=== PATIENT | female | born 1950 | race Caucasian/White ===

== ENCOUNTER 2017-07-25 10:37 | Inpatient (IN) | payer MEDICARE, SELFPAY ==
[~2017-07-25] VITALS: Ht 172.7 cm; Wt 57.9 kg
[2017-07-25] MEDS ORDERED: SODIUM CHLORIDE FLUSH 10ML SYR IVF ONE (11:30)
[2017-07-25] MEDS ORDERED: SODIUM CHLORIDE 0.9% 1,000ML IVBOLUS ONE (11:30)
[2017-07-25 11:33] LABS: BASOPHILS # (AUTO) 0.02 x10^3/uL (0-0.1); BASOPHILS % (AUTO) 0 % (0-1); EOSINOPHILS # (AUTO) 0.01 x10^3/uL (0-0.4); EOSINOPHILS % (AUTO) 0 % (1-7); LYMPHOCYTES # (AUTO) 1.13 x10^3/uL (1-3.4); LYMPHOCYTES % (AUTO) 13 % (22-44); MD NO; MEAN CORPUSCULAR HEMOGLOBIN 33.8 pg (27.0-34.8); MEAN CORPUSCULAR HGB CONC 34.4 g/dL (32.4-35.8); MEAN CORPUSCULAR VOLUME 98.1 fL (80-100); MEAN PLATELET VOLUME 6.9 fL (7.4-10.4); MONOCYTES # (AUTO) 0.29 x10^3/uL (0.2-0.8); MONOCYTES % (AUTO) 3 % (2-9); NEUTROPHILS % (AUTO) 83 % (42-75); PLATELET COUNT 405 x10^3/uL (130-400); RED BLOOD COUNT 3.11 x10^6/uL (3.82-5.3); RED CELL DISTRIBUTION WIDTH 14.3 % (9.6-15.2)
[2017-07-25 11:49] LABS: TROPONIN I < 0.015 ng/mL (0.000-0.045)
[2017-07-25] MEDS ORDERED: PLEASE ENTER HEIGHT AND WEIGHT MC SCH (12:00)
[2017-07-25 12:01] LABS: MICROSCOPIC AUTO
[2017-07-25 12:15] LABS: CULTURE INDICATED? YES
[2017-07-25 12:26] LABS: ANION GAP 11 mmol/L (5-15); CALCIUM 8.6 mg/dL (8.5-10.1); CHLORIDE 97 mmol/L (98-107); CREATININE 1.35 mg/dL (0.55-1.02)
[2017-07-25] MEDS ORDERED: MORPHINE SULFATE 4 MG/ML, 1ML ONE (12:43)
[2017-07-25] MEDS ORDERED: ONDANSETRON 2MG/ML, 2ML ONE (12:43)
[2017-07-25] MEDS ORDERED: ONDANSETRON 2MG/ML, 2ML IVPush ONE (13:00)
[2017-07-25] MEDS ORDERED: CEFTRIAXONE PMX 1GM/50ML 50 ML IV ONE (13:00)
[2017-07-25] MEDS ORDERED: MORPHINE SULFATE 4 MG/ML, 1ML IVPush ONE (13:00)
[2017-07-25] MEDS ORDERED: ETOMIDATE 20 MG/10 ML IVPush ONE (14:00)
[2017-07-25] MEDS ORDERED: FENTANYL PF 100 MCG/2ML ONE (14:03)
[2017-07-25] MEDS ORDERED: ETOMIDATE 20 MG/10 ML ONE (14:03)
[2017-07-25] MEDS ORDERED: FENTANYL PF 100 MCG/2ML IV ONE (14:30)
[2017-07-25] MEDS ORDERED: DOCUSATE 100 MG CAPSULE PO PRN (15:30)
[2017-07-25] MEDS ORDERED: BISACODYL 10 MG SUPP PR PRN (15:30)
[2017-07-25] MEDS ORDERED: ONDANSETRON 2MG/ML, 2ML IVPush PRN (15:30)
[2017-07-25] MEDS ORDERED: POLYETHYLENE GLYCOL 17 GM PACKET PO PRN (15:30)
[2017-07-25] MEDS ORDERED: ACETAMINOPHEN 325 MG TABLET PO PRN (15:30)
[2017-07-25] MEDS ORDERED: DEXTROSE 50%, 50ML SYRINGE IVPush PRN (16:00)
[2017-07-25] MEDS ORDERED: DEXTROSE 4 GM TAB.CHEW PO PRN (16:00)
[2017-07-25] MEDS: INSULIN ASPART 100 UNITS/ML, PEN SQ-INSULIN SCH ×2 (16:00→22:00)
[2017-07-25] MEDS ORDERED: GLUCAGON 1 MG IM PRN (16:00)
[2017-07-25 16:14] LABS: THYROID STIMULATING HORMONE 49.6 mIU/L (0.358-3.740)
[2017-07-25] MEDS ORDERED: GADOBUTROL 7.5 MMOL/7.5 ML PFS ONE (16:20)
[2017-07-25 18:38] VITALS: BP 168/91
[2017-07-25 19:14] VITALS: BP 146/78
[2017-07-25] MEDS: NS + 20MEQ KCL 1,000 ML IV SCH (19:57)
[2017-07-25 20:15] LABS: TROPONIN I < 0.015 ng/mL (0.000-0.045)
[2017-07-25] MEDS: SODIUM CHLORIDE FLUSH 10ML SYR IVF SCH (20:32)
[2017-07-25] MEDS: CEFTRIAXONE PMX 1GM/50ML 50 ML IV SCH (20:32)
[2017-07-26 01:52] VITALS: BP 155/76
[2017-07-26 02:50] LABS: TROPONIN I < 0.015 ng/mL (0.000-0.045)
[2017-07-26] MEDS: INSULIN ASPART 100 UNITS/ML, PEN SQ-INSULIN SCH ×4 (04:00→21:49)
[2017-07-26] MEDS: NS + 20MEQ KCL 1,000 ML IV SCH (05:40)
[2017-07-26] MEDS: LEVOTHYROXINE 25 MCG TABLET PO SCH (05:40)
[2017-07-26 06:06] LABS: BASOPHILS # (AUTO) 0.03 x10^3/uL (0-0.1); BASOPHILS % (AUTO) 1 % (0-1); EOSINOPHILS # (AUTO) 0.08 x10^3/uL (0-0.4); EOSINOPHILS % (AUTO) 1 % (1-7); LYMPHOCYTES # (AUTO) 1.13 x10^3/uL (1-3.4); LYMPHOCYTES % (AUTO) 20 % (22-44); MD NO; MEAN CORPUSCULAR HEMOGLOBIN 34.3 pg (27.0-34.8); MEAN CORPUSCULAR HGB CONC 34.4 g/dL (32.4-35.8); MEAN CORPUSCULAR VOLUME 99.7 fL (80-100); MEAN PLATELET VOLUME 7.4 fL (7.4-10.4); MONOCYTES # (AUTO) 0.31 x10^3/uL (0.2-0.8); MONOCYTES % (AUTO) 6 % (2-9); NEUTROPHILS # (AUTO) 4.04 x10^3/uL (1.8-6.8); NEUTROPHILS % (AUTO) 72 % (42-75); PLATELET COUNT 307 x10^3/uL (130-400); RED BLOOD COUNT 2.53 x10^6/uL (3.82-5.3); RED CELL DISTRIBUTION WIDTH 14.5 % (9.6-15.2)
[2017-07-26 06:14] LABS: CHLORIDE 104 mmol/L (98-107)
[2017-07-26 06:23] LABS: ANION GAP 8 mmol/L (5-15); CALCIUM 7.7 mg/dL (8.5-10.1); CHOL/HDL RATIO 3.1; CHOLESTEROL, TOTAL 181 mg/dL (140-239); CREATINE KINASE, TOTAL 703 U/L (26-192); HDL CHOL % 32 % (28-40); HDL CHOLESTEROL (DIRECT) 58 mg/dL (40-60); LDL CHOLESTEROL,CALCULATED 99 mg/dL (54-169); LDL/HDL RATIO 1.7 (0.5-3.0); TRIGLYCERIDES 121 mg/dL (50-200); VLDL CHOLESTEROL 24 mg/dL (0-25)
[2017-07-26 08:22] VITALS: BP 136/67
[2017-07-26] MEDS ORDERED: ASPIRIN 81 MG TABLET CHEW PO SCH (09:00)
[2017-07-26] MEDS: SODIUM CHLORIDE FLUSH 10ML SYR IVF SCH ×2 (09:00→21:49)
[2017-07-26 15:12] VITALS: BP 120/67
[2017-07-26] MEDS: CEFTRIAXONE PMX 1GM/50ML 50 ML IV SCH (16:31)
[2017-07-26] MEDS: NICOTINE 21 MG/24 HR PATCH.TD24 TD SCH (16:32)
[2017-07-26 19:41] VITALS: BP 137/74
[2017-07-27 01:00] VITALS: BP 131/71
[2017-07-27] MEDS: LEVOTHYROXINE 25 MCG TABLET PO SCH (05:28)
[2017-07-27 07:25] VITALS: BP 137/72
[2017-07-27] MEDS ORDERED: REGADENOSON 0.4 MG/5 ML SYRINGE ONE (08:03)
[2017-07-27] MEDS: SODIUM CHLORIDE FLUSH 10ML SYR IVF SCH ×2 (08:18→21:54)
[2017-07-27] MEDS: INSULIN ASPART 100 UNITS/ML, PEN SQ-INSULIN SCH ×4 (08:18→21:54)
[2017-07-27] MEDS: morphine SULFATE 10 MG/ML, 1ML IVPush PRN (08:28)
[2017-07-27 08:49] LABS: ANION GAP 4 mmol/L (5-15); CALCIUM 7.9 mg/dL (8.5-10.1); CHLORIDE 104 mmol/L (98-107); CREATININE 0.99 mg/dL (0.55-1.02)
[2017-07-27] MEDS ORDERED: POTASSIUM CHLORIDE 20 MEQ TAB.ER.PRT PO ONE (11:30)
[2017-07-27 13:25] VITALS: BP 160/73
[2017-07-27] MEDS: CEFTRIAXONE PMX 1GM/50ML 50 ML IV SCH (16:04)
[2017-07-27] MEDS: HYDROcodone/APAP 5/325 TABLET PO PRN (16:15)
[2017-07-27 18:48] VITALS: BP 125/70
[2017-07-27] MEDS: NICOTINE 21 MG/24 HR PATCH.TD24 TD SCH (21:54)
[2017-07-27] MEDS: ATORVASTATIN 40 MG TABLET PO SCH (21:55)
[2017-07-28 02:00] VITALS: BP 145/64
[2017-07-28 05:34] LABS: CHLORIDE 106 mmol/L (98-107)
[2017-07-28 05:37] LABS: BASOPHILS # (AUTO) 0.04 x10^3/uL (0-0.1); BASOPHILS % (AUTO) 1 % (0-1); EOSINOPHILS # (AUTO) 0.09 x10^3/uL (0-0.4); EOSINOPHILS % (AUTO) 2 % (1-7); LYMPHOCYTES # (AUTO) 1.64 x10^3/uL (1-3.4); LYMPHOCYTES % (AUTO) 27 % (22-44); MD NO; MEAN CORPUSCULAR HEMOGLOBIN 34.6 pg (27.0-34.8); MEAN CORPUSCULAR HGB CONC 34.7 g/dL (32.4-35.8); MEAN CORPUSCULAR VOLUME 99.7 fL (80-100); MEAN PLATELET VOLUME 7.3 fL (7.4-10.4); MONOCYTES # (AUTO) 0.32 x10^3/uL (0.2-0.8); MONOCYTES % (AUTO) 5 % (2-9); NEUTROPHILS # (AUTO) 4.02 x10^3/uL (1.8-6.8); NEUTROPHILS % (AUTO) 66 % (42-75); PLATELET COUNT 373 x10^3/uL (130-400); RED BLOOD COUNT 2.44 x10^6/uL (3.82-5.3); RED CELL DISTRIBUTION WIDTH 14.5 % (9.6-15.2)
[2017-07-28 05:49] LABS: ANION GAP 7 mmol/L (5-15); CREATINE KINASE, TOTAL 257 U/L (26-192); CREATININE 0.87 mg/dL (0.55-1.02)
[2017-07-28] MEDS: LEVOTHYROXINE 25 MCG TABLET PO SCH (05:57)
[2017-07-28] MEDS: ASPIRIN 81 MG TABLET EC PO SCH (05:57)
[2017-07-28] MEDS: INSULIN ASPART 100 UNITS/ML, PEN SQ-INSULIN SCH ×4 (07:00→21:00)
[2017-07-28 07:05] VITALS: BP 186/85
[2017-07-28 07:37] VITALS: BP 157/79
[2017-07-28] MEDS: morphine SULFATE 10 MG/ML, 1ML IVPush PRN (07:43)
[2017-07-28] MEDS: SODIUM CHLORIDE FLUSH 10ML SYR IVF SCH ×2 (07:59→20:35)
[2017-07-28] MEDS ORDERED: PHENYLEPHRINE 10 MG/ML ONE (10:10)
[2017-07-28] MEDS ORDERED: CEFAZOLIN 1,000 MG ONE (10:10)
[2017-07-28] MEDS ORDERED: BUPIVACAINE/PF 0.5% ONE (12:10)
[2017-07-28] MEDS ORDERED: EPINEPHRINE 1 MG/ML, 1ML ONE (12:10)
[2017-07-28] MEDS ORDERED: cloniDINE/PF 100 MCG/ML, 10 ML ONE (12:11)
[2017-07-28] MEDS ORDERED: MIDAZOLAM 1 MG/ML, 2ML ONE ×2 (12:14)
[2017-07-28] MEDS ORDERED: FENTANYL PF 100 MCG/2ML ONE ×2 (12:14→12:15)
[2017-07-28] MEDS ORDERED: HYDROmorphone 1 MG/ML, 1ML IV PRN (14:00)
[2017-07-28] MEDS ORDERED: ACETAMINOPHEN 325 MG TABLET PO PRN (14:00)
[2017-07-28] MEDS ORDERED: PROMETHAZINE 25 MG/ML, 1ML IV PRN (14:00)
[2017-07-28] MEDS ORDERED: ALBUTEROL SULFATE 2.5 MG/3 ML NPPB PRN (14:00)
[2017-07-28] MEDS ORDERED: MEPERIDINE/PF 25MG/0.5ML IVPush PRN (14:00)
[2017-07-28] MEDS ORDERED: OXYcodone 5 MG/5 ML ORAL.SOL UDC PO PRN (14:00)
[2017-07-28] MEDS ORDERED: FENTANYL PF 100 MCG/2ML IV PRN (14:00)
[2017-07-28] MEDS ORDERED: ONDANSETRON 2MG/ML, 2ML IVPush PRN (14:00)
[2017-07-28] MEDS ORDERED: LIDOCAINE 2% 100MG/5ML SYRINGE ONE (15:44)
[2017-07-28] MEDS ORDERED: PROPOFOL 10 MG/ML, 20ML ONE (15:44)
[2017-07-28] MEDS ORDERED: SUCCINYLCHOLINE 20 MG/ML, 10ML ONE (15:44)
[2017-07-28] MEDS ORDERED: DEXAMETHASONE 4 MG/ML, 1ML ONE (15:44)
[2017-07-28] MEDS ORDERED: ONDANSETRON 2MG/ML, 2ML ONE (15:44)
[2017-07-28] MEDS ORDERED: CEFAZOLIN 2,000 MG in DEXTROSE 5% 50 ML IVPB SCH ×2 (16:00)
[2017-07-28] MEDS ORDERED: CEFAZOLIN PMX 2GM/50ML 50 ML IVPB SCH (16:00)
[2017-07-28] MEDS: INSULIN REGULAR 100 UNITS/ML, 3ML VIAL SQ-INSULIN SCH ×2 (16:00→21:00)
[2017-07-28] MEDS ORDERED: CEFTRIAXONE 1,000 MG in DEXTROSE 5% 50 ML IV SCH (18:00)
[2017-07-28] MEDS: CEFTRIAXONE PMX 1GM/50ML 50 ML IV SCH (18:25)
[2017-07-28] MEDS: NICOTINE 21 MG/24 HR PATCH.TD24 TD SCH (20:34)
[2017-07-28] MEDS: ATORVASTATIN 40 MG TABLET PO SCH (20:34)
[2017-07-29 00:11] VITALS: BP 131/75
[2017-07-29] MEDS: HYDROcodone/APAP 5/325 TABLET PO PRN ×2 (05:54→14:17)
[2017-07-29] MEDS: LEVOTHYROXINE 25 MCG TABLET PO SCH (05:54)
[2017-07-29] MEDS: ASPIRIN 81 MG TABLET EC PO SCH (05:54)
[2017-07-29] MEDS: INSULIN REGULAR 100 UNITS/ML, 3ML VIAL SQ-INSULIN SCH ×3 (07:00→16:00)
[2017-07-29 07:48] VITALS: BP 149/73
[2017-07-29] MEDS: INSULIN ASPART 100 UNITS/ML, PEN SQ-INSULIN SCH ×3 (07:50→17:21)
[2017-07-29] MEDS: SODIUM CHLORIDE FLUSH 10ML SYR IVF SCH (07:51)
[2017-07-29 10:34] LABS: BASOPHILS # (AUTO) 0.04 x10^3/uL (0-0.1); BASOPHILS % (AUTO) 0 % (0-1); EOSINOPHILS # (AUTO) 0.04 x10^3/uL (0-0.4); EOSINOPHILS % (AUTO) 0 % (1-7); HEMOGRAM NOTE RECHECKED; LYMPHOCYTES # (AUTO) 1.08 x10^3/uL (1-3.4); LYMPHOCYTES % (AUTO) 9 % (22-44); MD NO; MEAN CORPUSCULAR HGB CONC 33.9 g/dL (32.4-35.8); MEAN CORPUSCULAR VOLUME 100.4 fL (80-100); MEAN PLATELET VOLUME 6.8 fL (7.4-10.4); MONOCYTES # (AUTO) 0.41 x10^3/uL (0.2-0.8); MONOCYTES % (AUTO) 4 % (2-9); NEUTROPHILS % (AUTO) 86 % (42-75); PLATELET COUNT 440 x10^3/uL (130-400); RED CELL DISTRIBUTION WIDTH 14.9 % (9.6-15.2)
[2017-07-29 10:38] LABS: ANION GAP 5 mmol/L (5-15); CALCIUM 7.9 mg/dL (8.5-10.1); CHLORIDE 103 mmol/L (98-107); CREATININE 0.96 mg/dL (0.55-1.02)
[2017-07-29] MEDS ORDERED: CEFD300C37 PO (11:02)
[2017-07-29] MEDS ORDERED: ATOR40TA78 PO (11:02)
[2017-07-29] MEDS ORDERED: LEVO25TA2 PO (11:02)
[2017-07-29] MEDS ORDERED: ASPI-621 PO (11:02)
[2017-07-29] MEDS ORDERED: HYDR-3240 PO (11:02)
[2017-07-29 13:10] VITALS: BP 124/73
[2017-07-29] MEDS ORDERED: FLU VACC QS2017-18 (36MOS+) UP/PF 0.5 ML IM-VACC ONE (14:30)
== END 2017-07-29 17:55 | DRG 492 ==
LOC: ED 14:03 → EDIP 15:22 → 4WST 18:25
PROVIDERS: ADMIT Internal Medicine; ATTEND Internal Medicine
PROC: 0RSJXZZ Reposition Right Shoulder Joint, External Approach (ICD-10-PCS; 2017-07-25)
PROC: 0PSC04Z Reposition Right Humeral Head with Internal Fixation Device, Open Approach (ICD-10-PCS; principal; 2017-07-28 12:30)
DX: M80.021A Age-related osteoporosis with current pathological fracture, right humerus, initial encounter for fracture (principal); I63.9 Cerebral infarction, unspecified; N17.0 Acute kidney failure with tubular necrosis; M62.82 Rhabdomyolysis; N30.00 Acute cystitis without hematuria; S22.31XA Fracture of one rib, right side, initial encounter for closed fracture; S43.014A Anterior dislocation of right humerus, initial encounter; E11.65 Type 2 diabetes mellitus with hyperglycemia; D64.9 Anemia, unspecified; M75.120 Complete rotator cuff tear or rupture of unspecified shoulder, not specified as traumatic; S42.134A Nondisplaced fracture of coracoid process, right shoulder, initial encounter for closed fracture; R55 Syncope and collapse; I11.9 Hypertensive heart disease without heart failure; R29.6 Repeated falls; E86.9 Volume depletion, unspecified; E87.6 Hypokalemia; E03.9 Hypothyroidism, unspecified; F17.210 Nicotine dependence, cigarettes, uncomplicated; M81.0 Age-related osteoporosis without current pathological fracture; Z66 Do not resuscitate; W01.0XXA Fall on same level from slipping, tripping and stumbling without subsequent striking against object, initial encounter; Z79.4 Long term (current) use of insulin; Z79.82 Long term (current) use of aspirin; Z82.49 Family history of ischemic heart disease and other diseases of the circulatory system; Z83.3 Family history of diabetes mellitus; Z86.73 Personal history of transient ischemic attack (TIA), and cerebral infarction without residual deficits; Z90.710 Acquired absence of both cervix and uterus; Z91.19 Patient's noncompliance with other medical treatment and regimen; Z90.89 Acquired absence of other organs; Z90.49 Acquired absence of other specified parts of digestive tract; Y93.89 Activity, other specified; Y92.098 Other place in other non-institutional residence as the place of occurrence of the external cause; Y99.8 Other external cause status; G90.8 Other disorders of autonomic nervous system; R79.89 Other specified abnormal findings of blood chemistry
CPT/HCPCS: 23650; 36415; 70553; 71010; 76001; 78452; 80048; 80061; 81001; 82040; 82550; 82607; 82746; 82962; 84439; 84443; 84484; 85025; 87077; 87086; 87186; 90686; 93005; 93017; 93306; 93880; 96374; 96375; 99152; A9585; C1713; J0171; J0690; J0696; J1100; J1815; J2250; J2405; J2704; J2785; J3010; J3480; J3490; 92523-GN; A9502; C9898; J0330; J0735; J2270; J2370; J7030

== ENCOUNTER 2020-09-04 01:13 | Emergency (ER) | payer MEDICARE, MEDICAID ==
[~2020-09-04] VITALS: Ht 172.7 cm; Wt 95.0 kg
[~2020-09-04 01:13] MED LIST: ASPI81TA45 PO; ATOR40TA78 PO; CEFD300C37 PO; HYDR-1067 PO; LEVO25TA2 PO
[2020-09-04 01:15] VITALS: BP 154/69
--- NOTE | 2020-09-04 01:15 | NUR ---
INITIAL PT CONTACT. PT PRESENTS TO ED VIA EMS FROM [facility] FOR ABNORMAL LAB RESULTS, HGB OF 6.7. PT HAS NO COMPLAINTS AT THIS TIME. SITTING UPRIGHT ON GURNEY, NADN, VSS. PT DENIES ANY NEEDS AT THIS TIME. CALL LIGHT IN REACH. ERP AT BEDSIDE.
--- NOTE | 2020-09-04 01:49 | NUR ---
PT PROVIDED WATER, OK PER ERP
--- NOTE | 2020-09-04 02:05 | NUR ---
PT SITTING UPRIGHT ON [place]RISTIE, VSS. PT DENIES ANY NEEDS AT THIS TIME. CALL LIGHT AND PERSONAL BELONGINGS WITHIN REACH.
--- NOTE | 2020-09-04 03:00 | NUR ---
PT TO RETURN TO [facility]. AWAITING TRANSPORTATION BACK. PT VERBALIZED UNDERSTANDING OF D/C INSTRUCTIONS. NO ADDITIONAL NEEDS AT THIS TIME.
--- NOTE | 2020-09-04 04:15 | NUR ---
PT DEPARTED ED VIA [facility] TO RETURN TO [facility].
== END 2020-09-04 04:27 | disposition home or self-care (01) ==
LOC: ED 01:30
DX: D64.9 Anemia, unspecified (principal); R79.9 Abnormal finding of blood chemistry, unspecified; Z51.5 Encounter for palliative care; Z86.73 Personal history of transient ischemic attack (TIA), and cerebral infarction without residual deficits
CPT/HCPCS: 99283